=== PATIENT | male | born 1975 | race Caucasian/White ===

== ENCOUNTER 2019-02-24 10:23 | Emergency (ER) | payer BC ==
[~2019-02-24] VITALS: Ht 170.2 cm; Wt 117.9 kg
--- NOTE | 2019-02-24 10:50 | NUR ---
XRAY AT BEDSIDE.
[2019-02-24 11:04] LABS: BASOPHILS # (AUTO) 0.1 (0.0-0.1); BASOPHILS % 0.7 % (0.0-1.0); EOSINOPHILS # (AUTO) 0.2 (0.0-0.4); HEMATOCRIT 49.2 % (38.2-49.6); HEMOGLOBIN 17.3 g/dL (14.0-18.0); LYMPHOCYTES # (AUTO) 2.9 (1.0-3.2); LYMPHOCYTES % 29.8 % (18.0-39.1); MEAN CORPUSCULAR HEMOGLOBIN 32.6 pg (28-32); MEAN CORPUSCULAR HGB CONC 35.2 g/dL (31-35); MEAN CORPUSCULAR VOLUME 92.8 fL (81-99); MONOCYTES # (AUTO) 1.2 (0.2-0.8); MONOCYTES % 12.3 % (4.4-11.3); NEUTROPHILS # (AUTO) 5.3 (2.1-6.9); NEUTROPHILS % 54.8 % (38.7-80.0); PLATELET COUNT 236 x10e3/uL (140-360); RED CELL DISTRIBUTION WIDTH 13.1 % (11.7-14.4)
[2019-02-24 11:16] LABS: INR 0.94; PROTHROMBIN TIME 13.1 seconds (11.9-14.5)
[2019-02-24 11:17] LABS: PARTIAL THROMBOPLASTIN TIME 32.6 seconds (23.8-35.5)
[2019-02-24 11:26] LABS: ALANINE AMINOTRANSFERASE 38 IU/L (0-55); ALBUMIN 4.4 g/dL (3.5-5.0); ALBUMIN/GLOBULIN RATIO 1.6 (0.8-2.0); ALKALINE PHOSPHATASE 92 IU/L (40-150); ANION GAP 14.1 mmol/L (8-16); BLOOD UREA NITROGEN 15 mg/dL (7-26); BUN/CREATININE RATIO 13 (6-25); CALCIUM 10.4 mg/dL (8.4-10.2); CARBON DIOXIDE 24 mmol/L (22-29); CHLORIDE 105 mmol/L (98-107); CREATINE KINASE 92 IU/L (30-200); CREATININE, SERUM 1.18 mg/dL (0.72-1.25); EST GLOMERULAR FILTRATION RATE > 60 ML/MIN (60-); GLUCOSE 94 mg/dL (74-118); MAGNESIUM 2.4 MG/DL (1.3-2.1); POTASSIUM 4.1 mmol/L (3.5-5.1); SODIUM 139 mmol/L (136-145)
--- NOTE | 2019-02-24 11:31 | Diagnostic Imaging Report ---
EXAMINATION: CHEST SINGLE (PORTABLE) INDICATION: Hypotension, bilateral hand numbness. COMPARISON: None FINDINGS: TUBES and LINES: None. LUNGS: Lungs are well inflated. There is no evidence of pneumonia or pulmonary edema. PLEURA: No pleural effusion or pneumothorax. HEART AND MEDIASTINUM: The cardiomediastinal silhouette is unremarkable. BONES AND SOFT TISSUES: No acute osseous abnormality. UPPER ABDOMEN: No free air under the diaphragm. IMPRESSION: No acute radiographic abnormality. Signed by: Dr. Charley Howe MD on 02/24/2019 11:28 AM
[2019-02-24 12:11] VITALS: BP 108/69
== END 2019-02-24 12:23 | disposition home or self-care (01) ==
LOC: ER 10:23
DX: R06.09 Other forms of dyspnea (principal); R05 Cough; J20.9 Acute bronchitis, unspecified; J01.10 Acute frontal sinusitis, unspecified; I10 Essential (primary) hypertension; E11.9 Type 2 diabetes mellitus without complications
CPT/HCPCS: 36415; 71045; 80053; 82550; 82553; 83735; 83880; 84484; 85025; 85610; 85730; 93005; 99284

== ENCOUNTER 2019-04-02 13:57 | Inpatient (IN) | payer BC ==
[2019-04-02] VITALS (8 sets, daily range): BP systolic 109–133; BP diastolic 68–91
[~2019-04-02] VITALS: Ht 170.2 cm; Wt 121.3 kg
--- OUTSIDE RECORDS SUMMARY | 2019-04-02 14:01 | XMS REPORT ---
Author Author [facility] Address Unknown Phone Unavailable Care Team Providers Care Glass Glazier Name Role Phone Kayla MURGUIA Unavailable Unavailable Problems This patient has no known problems. Allergies, Adverse Reactions, Alerts This patient has no known allergies or adverse reactions. Medications This patient has no known medications. 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 COMPARISON: None FINDINGS: TUBES and LINES: None. LUNGS: Lungs are well inflated. There is no evidence of pneumonia or pulmonary edema. PLEURA: No pleural effusion or pneumothorax. HEART AND MEDIASTINUM: The cardiomediastinal silhouette is unremarkable. BONES AND SOFT TISSUES: No acute osseous abnormality. UPPER ABDOMEN: No free air under the diaphragm. IMPRESSION: No acute radiographic abnormality. Signed by: Dr. Brant Kenny MD on 02/24/2019 11:28 AM Dictated By: BRANT KENNY MD 1128 Transcribed By: FEDE on 02/24/19 1128 COPY TO: KARIN MOELLER NP
[2019-04-02] MEDS ORDERED: ASPIRIN 81 MG CHEW TAB PO ONE ×2 (14:15→15:30)
[2019-04-02] MEDS ORDERED: MORPHINE SULFATE 5 MG/ML VIAL IV ONE (14:30)
[2019-04-02 14:36] LABS: BASOPHILS # (AUTO) 0.1 (0.0-0.1); BASOPHILS % 0.5 % (0.0-1.0); EOSINOPHILS # (AUTO) 0.2 (0.0-0.4); HEMATOCRIT 48.2 % (38.2-49.6); HEMOGLOBIN 16.9 g/dL (14.0-18.0); LYMPHOCYTES # (AUTO) 2.7 (1.0-3.2); LYMPHOCYTES % 29.9 % (18.0-39.1); MEAN CORPUSCULAR HEMOGLOBIN 32.6 pg (28-32); MEAN CORPUSCULAR HGB CONC 35.1 g/dL (31-35); MEAN CORPUSCULAR VOLUME 93.1 fL (81-99); MONOCYTES % 11.2 % (4.4-11.3); NEUTROPHILS # (AUTO) 5.1 (2.1-6.9); NEUTROPHILS % 56.1 % (38.7-80.0); PLATELET COUNT 234 x10e3/uL (140-360); RED BLOOD COUNT 5.18 x10e6/uL (4.3-5.7); RED CELL DISTRIBUTION WIDTH 12.8 % (11.7-14.4)
[2019-04-02 14:44] LABS: INR 0.98; PROTHROMBIN TIME 13.5 seconds (11.9-14.5)
[2019-04-02 14:45] LABS: PARTIAL THROMBOPLASTIN TIME 34.6 seconds (23.8-35.5)
[2019-04-02 14:56] LABS: ALANINE AMINOTRANSFERASE 37 IU/L (0-55); ALBUMIN 4.2 g/dL (3.5-5.0); ALBUMIN/GLOBULIN RATIO 1.4 (0.8-2.0); ALKALINE PHOSPHATASE 95 IU/L (40-150); ANION GAP 13.9 mmol/L (8-16); BLOOD UREA NITROGEN 16 mg/dL (7-26); BUN/CREATININE RATIO 13 (6-25); CARBON DIOXIDE 24 mmol/L (22-29); CHLORIDE 105 mmol/L (98-107); CREATINE KINASE 127 IU/L (30-200); CREATININE, SERUM 1.26 mg/dL (0.72-1.25); EST GLOMERULAR FILTRATION RATE > 60 ML/MIN (60-); GLUCOSE 112 mg/dL (74-118); POTASSIUM 3.9 mmol/L (3.5-5.1); SODIUM 139 mmol/L (136-145)
[2019-04-02 15:09] LABS: BILIRUBIN,URINE NEGATIVE (NEGATIVE); CLARITY,URINE SL CLOUDY (CLEAR); COLOR,URINE YELLOW (YELLOW); KETONES,URINE NEGATIVE (NEGATIVE); LEUKOCYTE ESTERASE ,URINE NEGATIVE (NEGATIVE); NITRITE,URINE NEGATIVE (NEGATIVE); PROTEIN,URINE DIPSTICK NEGATIVE (NEGATIVE); URINE UROBILINOGEN 0.2 mg/dL (0.2 - 1)
[2019-04-02] MEDS ORDERED: NITROGLYCERIN 0.4 MG SUBL ONE (15:13)
[2019-04-02] MEDS ORDERED: SODIUM CHLORIDE 0.9% 1000ML 1,000 ML ONE (15:13)
--- NOTE | 2019-04-02 15:15 | NUR ---
Pt reports severe chest pain states pain now radiating to his Left arm. Describes pain as a sharp pain. Rates pain 10/10. EKG repeated. CAMILLE Sotelo and Dr. Hayes notified. Verbal order with read back for Nitro 0.4mg SL.
--- NOTE | 2019-04-02 15:17 | Diagnostic Imaging Report ---
EXAMINATION: CHEST SINGLE (PORTABLE) INDICATION: Chest pain COMPARISON: Chest radiograph of 02/24/2019 FINDINGS: TUBES and LINES: EKG leads overlie the chest. LUNGS: The lung volumes are normal. No focal consolidation or pulmonary edema. PLEURA: No pleural effusion or pneumothorax. HEART AND MEDIASTINUM: The cardiomediastinal silhouette is normal in size and contour. BONES AND SOFT TISSUES: No acute fracture or dislocation. UPPER ABDOMEN: No free air under the diaphragm. IMPRESSION: No focal pneumonia or pulmonary edema Signed by: Jesu Singletary MD on 04/02/2019 3:14 PM
[2019-04-02] MEDS: NITROGLYCERIN 0.4 MG SUBL SL PRN ×2 (15:18→15:25)
[2019-04-02] MEDS ORDERED: NITROGLYCERIN/D5W 200 MCG/ML 250 ML IV PRN (15:30)
[2019-04-02] MEDS ORDERED: DEXTROSE 50% SYRINGE 50 ML IV PRN (15:30)
[2019-04-02] MEDS ORDERED: NITROGLYCERIN 0.4 MG SUBL SL PRN (15:30)
--- NOTE | 2019-04-02 15:34 | NUR ---
Pt currently rates pain 4/10. States pain has improved with Nitro 0.4mg SL x2.
[2019-04-02] MEDS ORDERED: CLOPIDOGREL BISULFATE 75 MG TAB PO ONE (15:45)
[2019-04-02] MEDS ORDERED: HEPARIN SOD (PORCINE) 5,000 UNIT/ML VIAL IV ONE (15:45)
[2019-04-02] MEDS ORDERED: ACETAMINOPHEN 325 MG TAB PO ONE (15:45)
[2019-04-02] MEDS ORDERED: HEPARIN 25,000 UNIT 1,000 UNIT in DEXTROSE 5% 250ML 250 ML IV SCH (15:45)
[2019-04-02 15:52] LABS: AMORPHOUS SEDIMENT,URINE MODERATE (FEW); BACTERIA,URINE FEW /HPF; CALCIUM OXALATE CRYSTALS,UR FEW (FEW); EPITHELIAL CELLS,URINE FEW /LPF; MUCUS,URINE MODERATE (RARE)
[2019-04-02] MEDS ORDERED: METFORMIN HCL500 MG PO (16:28)
[2019-04-02] MEDS ORDERED: METOPROLOL SUCC25 MG PO (16:28)
[2019-04-02] MEDS: INSULIN REGULAR, HUMAN 100 UNIT/1 ML 3ML VIAL SQ SCH ×2 (16:30→21:00)
[2019-04-02] MEDS: SODIUM CHLORIDE 0.9% 1000ML 1,000 ML IV SCH (19:20)
--- NOTE | 2019-04-02 20:00 | NUR ---
Pt with c/o not being able to tolerate the nitroglycerin. Had reported chest discomfort/tightness of "6" up from a "2". Qxygen at 2L per NC applied. The nitroglycerin increased to 25mcg/min. Pt stating he has intolerable headache of "4", but the chest tightness is back down to tolerable of "3". Denies chest pain. States pain comes with tightness of "8" or worse. Have paged and spoken with Dr Craven to report the above complaints. New orders received.
[2019-04-02] MEDS ORDERED: ONDANSETRON HCL 4 MG ORAL DISINTEGRATING TAB PO PRN (20:15)
[2019-04-02] MEDS: ACETAMINOPHEN 325 MG TAB PO PRN (20:23)
[2019-04-02 21:37] LABS: CREATINE KINASE MB 9.4 ng/mL (0-5.0)
[2019-04-03] VITALS (29 sets, daily range): BP systolic 105–144; BP diastolic 60–93
--- NOTE | 2019-04-03 00:47 | History and Physical ---
REASON FOR ADMISSION: Non-ST elevation myocardial infarction. HISTORY OF PRESENT ILLNESS: This is a 43-year-old male with history of diabetes mellitus, hypertension, and hyperlipidemia, who presents with complaints of chest pain. The patient was recently seen by Dr. Zheng in the office and was scheduled for an outpatient nuclear stress test, however, the patient reports he developed worsening chest pain today. He describes it as pressure, 10/10 in severity in the center of his chest with radiation to the left arm, lasting approximately 15 to 20 minutes. He denies any shortness of breath, nausea, or diaphoresis. Denies any edema, orthopnea, or PND. Chest pain is better, but persists at this time. He presented to the ER for further evaluation where he was found to have a troponin of 0.324. He was subsequently admitted for further management. REVIEW OF SYSTEMS: Negative except as per HPI. PAST MEDICAL HISTORY: 1. Hypertension. 2. Hyperlipidemia. 3. Diabetes mellitus. PAST SURGICAL HISTORY: 1. Hand surgery. 2. Appendectomy. ALLERGIES: MORPHINE. MEDICATIONS: Please see medication list. SOCIAL HISTORY: He smokes a pack a day for 20 years. Occasional alcohol. No illicit drugs. FAMILY HISTORY: Unknown as the patient is adopted. PHYSICAL EXAMINATION: VITAL SIGNS: Temperature 98 degrees, pulse 73, respiratory rate 22, blood pressure 129/87, oxygen saturation 98%. GENERAL: A well-developed, well-nourished man, in no acute distress. HEENT: Normocephalic, atraumatic. Pupils equal. No scleral icterus. NECK: Supple. No thyromegaly or cervical lymphadenopathy. No carotid bruits. LUNGS: Clear to auscultation bilaterally. No wheezes or crackles. CARDIOVASCULAR: Normal rate, regular rhythm. No murmur. Normal S1, S2. ABDOMEN: Soft, nontender. EXTREMITIES: No edema. NEUROLOGIC: Nonfocal exam. LABORATORY DATA: WBC 9.12, hemoglobin 16.9, hematocrit 48.2, platelets 234. Sodium 139, potassium 3.9, chloride 105, CO2 of 24. BUN 16 and creatinine 1.26. INR 0.98. Chest x-ray, no focal pneumonia or pulmonary edema. EKG, normal sinus rhythm, normal ECG. IMPRESSION: 1. Spo-UU-lwbiqkfvz myocardial infarction. 2. Hypertension. 3. Diabetes mellitus. 4. Hyperlipidemia. 5. Acute kidney injury. The patient has been placed on heparin drip and nitroglycerin drip, titrate for until the patient is chest pain-free. IV fluids in preparation for cardiac catheterization tomorrow. N.p.o. after midnight. Aspirin has been given, we will continue. Start the patient on metoprolol, trend cardiac enzymes. Fiordaliza Craven MD ABS/MODL /[id number] MTDD
[2019-04-03] MEDS: ACETAMINOPHEN 325 MG TAB PO PRN ×2 (02:20→08:32)
[2019-04-03] MEDS: SODIUM CHLORIDE 0.9% 1000ML 1,000 ML IV SCH (04:05)
[2019-04-03 05:42] LABS: CREATINE KINASE MB 19.5 ng/mL (0-5.0)
[2019-04-03 06:19] LABS: CHOL/HDL RATIO 5.3 (3.9-4.7)
[2019-04-03] MEDS: INSULIN REGULAR, HUMAN 100 UNIT/1 ML 3ML VIAL SQ SCH ×4 (07:30→21:00)
[2019-04-03] MEDS: ASPIRIN 81 MG ENTERIC COATED PO SCH (08:31)
[2019-04-03] MEDS: METOPROLOL TARTRATE 25 MG TAB PO SCH ×2 (08:31→16:45)
[2019-04-03 11:09] LABS: CREATINE KINASE MB 24.4 ng/mL (0-5.0)
[2019-04-03 12:28] LABS: ANION GAP 14.3 mmol/L (8-16); BLOOD UREA NITROGEN 12 mg/dL (7-26); BUN/CREATININE RATIO 12 (6-25); CALCIUM 9.1 mg/dL (8.4-10.2); CARBON DIOXIDE 20 mmol/L (22-29); CHLORIDE 108 mmol/L (98-107); CREATININE, SERUM 1.01 mg/dL (0.72-1.25); EST GLOMERULAR FILTRATION RATE > 60 ML/MIN (60-); GLUCOSE 132 mg/dL (74-118); POTASSIUM 4.3 mmol/L (3.5-5.1); SODIUM 138 mmol/L (136-145)
--- NOTE | 2019-04-03 13:26 | Progress Note ---
DATE: 04/03/2019 Cardiology Progress Note SUBJECTIVE: The patient denies chest pain or shortness of breath. He remains on nitroglycerin drip and heparin drip. OBJECTIVE: VITAL SIGNS: Temperature 98 degrees, pulse 88, respiratory rate 17, blood pressure 119/84, oxygen saturation 100% on room air. GENERAL: Awake, alert, in no acute distress. LUNGS: Clear to auscultation bilaterally. No wheezes or crackles. CARDIOVASCULAR: Normal rate, regular rhythm. No murmur. Normal S1, S2. ABDOMEN: Soft, nontender. EXTREMITIES: No edema. CARDIAC MEDICATIONS: Aspirin 81 mg p.o. daily, metoprolol tartrate 12.5 mg p.o. b.i.d., heparin drip, nitroglycerin drip. LABORATORY DATA: Troponin 1.258, CK-MB 24.4, triglycerides 184, cholesterol 176, LDL 106, HDL 33. TELEMETRY: Normal sinus rhythm. IMPRESSION: 1. Vpy-RK-sffwvokuo myocardial infarction. 2. Hypertension. 3. Diabetes mellitus. 4. Hyperlipidemia. 5. Acute kidney injury. RECOMMENDATIONS: The patient is n.p.o. for cardiac catheterization today. Maintain on heparin drip and nitroglycerin drip. He is currently chest pain free. Continue IV fluids. Repeat basic metabolic panel. Start patient on atorvastatin given elevated LDL and sek-CL-nuditnybv myocardial infarction. Continue aspirin as well as metoprolol. Trend cardiac enzymes until downtrending. The patient was loaded with Plavix yesterday afternoon. Hold further Plavix until completion of cardiac cath. Fiordaliza Craven MD ABS/MODL /[id number]
[2019-04-03] MEDS ORDERED: VERAPAMIL HCL 2.5 MG/ML 2 ML VIAL ONE (13:34)
[2019-04-03] MEDS ORDERED: MIDAZOLAM HCL 2 MG/2 ML VIAL ONE ×2 (13:34→14:56)
[2019-04-03] MEDS ORDERED: FENTANYL CITRATE/PF 100MCG/2 ML INJ ONE (13:34)
[2019-04-03] MEDS ORDERED: IOPAMIDOL 370 MG/ML 200 ML INFUS..BTL INJ ONE ×3 (13:35→14:52)
[2019-04-03] MEDS ORDERED: LIDOCAINE HCL 2% LOCAL 20 ML VIAL ONE (13:35)
[2019-04-03] MEDS ORDERED: HEPARIN SOD/SOD CHLORIDE 2,000 ML ONE (13:35)
[2019-04-03] MEDS ORDERED: SODIUM CHLORIDE 0.9% 1000ML 1,000 ML ONE (13:35)
--- NOTE | 2019-04-03 13:45 | NUR ---
Patient to energy systems laboratory director via bed. Report to MITCH Sandoval.
[2019-04-03] MEDS ORDERED: ONDANSETRON HCL INJ 2MG/ML 2ML 2 MG/ML VIAL ONE (14:23)
[2019-04-03] MEDS ORDERED: PROMETHAZINE HCL (IM) 25 MG/ML VIAL ONE (14:57)
[2019-04-03] MEDS ORDERED: ATROPINE SULFATE 0.1 MG/ML 10ML SYR ONE (14:58)
[2019-04-03] MEDS ORDERED: TICAGRELOR 90 MG TABLET ONE (15:08)
--- NOTE | 2019-04-03 15:20 | NUR ---
Report provided to Deena MEYER, review of procedural findings and medications given. Patient drowsy, easily aroused. maintains airway and room air saturations of 96-98%. No gross issues of pressure, pain, pallor or dysrhythmia. IV site patent with NS 0.9% at KVO by gravity. Nitro gtt stopped. patient hemodynamically stable with hemostasis right radial TR band dressing CDI w/o s/s of bleeding. Denies need to urinate after producing 200ml clear urine or c/o nausea. [facility]. transported to ICU 194 by CCL staff on monitor - cgf procedure: DX LHC w/ PCI to Diagonal Sheath puller: Don PEDIATRIC OCCUPATIONAL THERAPIST LTR band 12ml Meds Given Intra-Procedure Sedatives Versed - 3 mg Fentanyl - 100 mcg Anticoagulants Heparin - 9000 Units Radial Cocktail Heparin - 3000 units Nitro - 200mcg Verapamil - 2.5mg Fluids Input -400ml Output - 200ml Contrast Isovue 370 - 220ml Other Meds Brilinta 180mg Zofran IV 4mg Phenergan 12.5mg IV
--- NOTE | 2019-04-03 15:34 | NUR ---
Paged Dr Devorah Zheng to request post cath orders.
--- NOTE | 2019-04-03 15:47 | NUR ---
Left message on VM of Dr Devorah Zheng.
--- NOTE | 2019-04-03 20:48 | Operative Report ---
DATE OF PROCEDURE: SURGEON: Earl Zheng DO PROCEDURES PERFORMED: 1. Selective coronary angiography x2. 2. Left heart catheterization. 3. Percutaneous transluminal coronary angioplasty and drug-eluting stent placement to the right posterolateral coronary artery. 4. Conscious sedation, 45 minutes. PREPROCEDURE DIAGNOSIS: Non-ST elevation myocardial infarction. POSTPROCEDURE DIAGNOSIS: Non-ST elevation myocardial infarction. ESTIMATED BLOOD LOSS: Less than 20 mL. SPECIMENS REMOVED: None. PROCEDURE IN DETAIL: After informed consent was obtained, the patient was brought to the cardiac catheterization laboratory in a fasting and nonsedated state. Bilateral groins and right wrist were prepped and draped in the usual sterile fashion. A 2% lidocaine was infiltrated over the right wrist for local anesthesia. Using micropuncture needle, the right radial artery was accessed via modified Seldinger technique and a 5-Portuguese Glidesheath was placed. Next, selective coronary angiography was performed using a TIG and AR mod catheters. This revealed a significant occlusion of the right posterolateral branch and decision was made to perform percutaneous coronary intervention. The patient received systemic heparin for therapeutic anticoagulation. The right coronary artery was cannulated with an AR mod guide catheter with backup support of a GuideLiner. The lesion was crossed with a Whisper wire and pre-dilated with a 2 balloon. Next, the lesion was stented with a 2 x 22 Resolute ben stent with excellent angioplasty results. The patient tolerated the procedure well with no immediate complications and transported back to his room in stable condition. PROCEDURAL FINDINGS: 1. Left main coronary artery is patent without significant disease. 2. The left anterior descending coronary artery is patent throughout its course with mild luminal irregularities. The diagonal branch is small in caliber with an ostial 50% stenosis. 3. The ramus intermedius coronary artery is small with mild diffuse disease. 4. The left circumflex coronary provides flow into one bifurcating obtuse marginal vessel. 5. The right coronary artery is a dominant vessel that provides the posterior descending coronary artery. The RCA itself has no significant disease. The posterolateral branch is 100% occluded. INTERVENTIONAL RESULTS: Successful percutaneous coronary intervention of the right posterolateral branch. Pre-PCI ALEXIS flow was 0. Post-PCI ALEXIS flow was 3. Postprocedure stenosis less than 10%. IMPRESSION: Coronary artery disease with a non-ST elevation myocardial infarction. RECOMMENDATIONS: Continue dual antiplatelet therapy and receive guideline directed medical therapy for his myocardial infarction. DO VIC Ortiz /[id number]
[2019-04-03] MEDS ORDERED: ATORVASTATIN 40 MG TAB PO SCH (21:00)
[2019-04-03] MEDS ORDERED: ATORVASTATIN 20 MG TAB PO SCH (21:00)
--- NOTE | 2019-04-03 21:00 | NUR ---
Right radial TR band removed per protocol. 2x2 gauze and transparent dressing applied. Mild pressure with foam tape also applied. Pt is without complaint. Bruising is noted, but not more than at shift change. No bleeding or hematoma noted. Pt educated not to use the arm tonight, put pressure, or lift with the right arm. Also, discussed continued restrictions (ie: 10lb weight limit) until cleared by cardiology. Pt voiced understanding. Will monitor.
[2019-04-04] VITALS (10 sets, daily range): BP systolic 104–137; BP diastolic 71–90
[2019-04-04] MEDS: INSULIN REGULAR, HUMAN 100 UNIT/1 ML 3ML VIAL SQ SCH ×2 (07:30→11:30)
[2019-04-04] MEDS: ASPIRIN 81 MG ENTERIC COATED PO SCH (08:10)
[2019-04-04] MEDS: METOPROLOL TARTRATE 25 MG TAB PO SCH (08:15)
--- NOTE | 2019-04-04 08:25 | NUR ---
patient ambulating in room to toilet and chair on continuous ekg monitoring. no signs of any sob and patient denies chest pain. vital signs remain stable.
[2019-04-04] MEDS ORDERED: TICAGRELOR 90 MG TABLET PO SCH (11:00)
[2019-04-04] MEDS ORDERED: BRILINTA90 MG PO (11:06)
[2019-04-04] MEDS ORDERED: ASPIRIN81 MG PO (11:18)
--- NOTE | 2019-04-04 11:27 | NUR ---
discontinued piv x 2. catheters intact. held pressure and applied pressure bandage.
--- NOTE | 2019-04-04 11:37 | NUR ---
patient given coupon for new prescription. patient to let provider know if he has any issues with getting medication
--- NOTE | 2019-04-05 03:36 | Discharge Summary ---
ADMISSION DIAGNOSIS: Rqp-PR-vwfavjknh myocardial infarction. DISCHARGE DIAGNOSIS: Cij-KK-alwyjjtwb myocardial infarction. COMORBID CONDITIONS: Hypertension, hyperlipidemia, and diabetes mellitus. PROCEDURE: 1. Selective coronary angiography. 2. Left heart catheterization. 3. Percutaneous transluminal coronary angioplasty and drug-eluting stent placement to the right posterolateral coronary artery. HISTORY OF PRESENT ILLNESS AND HOSPITAL COURSE: A 43-year-old man with history as above, who presented to the [facility] with complaints of chest pain. He was found to have hho-YE-ahdbgilth myocardial infarction, taken to the cardiac catheterization laboratory as above. He had percutaneous coronary intervention of the right posterolateral artery and was observed in the hospital overnight. The patient tolerated the procedure well and was discharged home the following day in stable condition. MEDICATIONS: Please see discharge medication reconciliation. FOLLOWUP: Follow up with Dr. Earl Zheng in two weeks. PHYSICAL EXAMINATION: VITAL SIGNS: Temperature 97 degrees, pulse 68, respiratory rate 18, blood pressure 119/86, and oxygen saturation 98% on room air. GENERAL: A well-developed, well-nourished man, in no acute distress. Awake and alert. LUNGS: Clear to auscultation bilaterally. No wheeze or crackles. CARDIOVASCULAR: Normal rate. Regular rhythm. No murmur. Normal S1, S2. ABDOMEN: Soft and nontender. EXTREMITIES: No edema. Right wrist with palpable radial pulse. Telemetry is normal sinus rhythm. Fiordaliza Craven MD ABS/MODL /[id number]
== END 2019-04-04 12:04 | disposition home or self-care (01) | DRG 247 ==
LOC: ER 13:57 → ERHOLD 15:30 → ICU 17:08
PROVIDERS: ADMIT Internal Medicine Cardiovascular Disease; ATTEND Internal Medicine Cardiovascular Disease
PROC: B2151ZZ Fluoroscopy of Left Heart using Low Osmolar Contrast (ICD-10-PCS; principal; 2019-04-03)
PROC: 027034Z Dilation of Coronary Artery, One Artery with Drug-eluting Intraluminal Device, Percutaneous Approach (ICD-10-PCS; 2019-04-03)
PROC: B2111ZZ Fluoroscopy of Multiple Coronary Arteries using Low Osmolar Contrast (ICD-10-PCS; 2019-04-03)
PROC: 4A023N7 Measurement of Cardiac Sampling and Pressure, Left Heart, Percutaneous Approach (ICD-10-PCS; 2019-04-03)
DX: I21.4 Non-ST elevation (NSTEMI) myocardial infarction (principal); N17.9 Acute kidney failure, unspecified; Z68.41 Body mass index [BMI] 40.0-44.9, adult; I10 Essential (primary) hypertension; E11.9 Type 2 diabetes mellitus without complications; E78.5 Hyperlipidemia, unspecified; E66.9 Obesity, unspecified; Z82.49 Family history of ischemic heart disease and other diseases of the circulatory system; Z88.5 Allergy status to narcotic agent; Z72.89 Other problems related to lifestyle; F17.210 Nicotine dependence, cigarettes, uncomplicated; I25.110 Atherosclerotic heart disease of native coronary artery with unstable angina pectoris; Z79.84 Long term (current) use of oral hypoglycemic drugs
CPT/HCPCS: 36415; 71045; 80048; 80053; 80061; 81001; 82550; 82553; 82948; 83880; 84484; 85025; 85610; 85730; 92928; 93005; 93458; 99284; C1725; C1769; C1874; C1887; J1644; J2001; J2250; J2405; J2550; J3010; J7030; Q0162; Q9967

== ENCOUNTER 2021-07-31 22:07 | Emergency (ER) | payer BC, OTHER ==
[~2021-07-31] VITALS: Ht 170.2 cm; Wt 102.1 kg
[~2021-07-31 22:07] MED LIST: ASPIRIN81 MG PO; BRILINTA90 MG PO; METFORMIN HCL500 MG PO; METOPROLOL SUCC25 MG PO
[2021-07-31] MEDS ORDERED: METHYLPREDNISOLONE SOD SUCC 125 MG/2ML VIAL IV ONE (22:15)
[2021-07-31] MEDS ORDERED: ALBUTEROL SULF 0.083% NEB SOLN 3 ML NEB NEB STA (22:23)
[2021-07-31 22:45] LABS: BASOPHILS # (AUTO) 0.1 (0.0-0.1); BASOPHILS % 0.6 % (0.0-1.0); EOSINOPHILS # (AUTO) 0.3 (0.0-0.4); EOSINOPHILS % 2.5 % (0.0-6.0); HEMATOCRIT 49.2 % (38.2-49.6); HEMOGLOBIN 16.8 g/dL (14.0-18.0); LYMPHOCYTES # (AUTO) 3.8 (1.0-3.2); LYMPHOCYTES % 29.1 % (18.0-39.1); MEAN CORPUSCULAR HEMOGLOBIN 32.7 pg (28-32); MEAN CORPUSCULAR HGB CONC 34.1 g/dL (31-35); MEAN CORPUSCULAR VOLUME 95.7 fL (81-99); MONOCYTES # (AUTO) 1.9 (0.2-0.8); MONOCYTES % 14.6 % (4.4-11.3); NEUTROPHILS # (AUTO) 6.9 (2.1-6.9); NEUTROPHILS % 52.7 % (38.7-80.0); PLATELET COUNT 217 x10e3/uL (140-360); RED BLOOD COUNT 5.14 x10e6/uL (4.3-5.7); RED CELL DISTRIBUTION WIDTH 12.9 % (11.7-14.4)
[2021-07-31 23:03] LABS: ALBUMIN 4.1 g/dL (3.5-5.0); ALBUMIN/GLOBULIN RATIO 1.3 (0.8-2.0); ANION GAP 19.7 mmol/L (8-16); CALCIUM 9.3 mg/dL (8.4-10.2); CREATININE, SERUM 1.1 mg/dL (0.72-1.25); POTASSIUM 3.7 mmol/L (3.5-5.1)
[2021-07-31 23:09] LABS: CREATINE KINASE MB 1.8 ng/mL (0-5.0)
[2021-07-31] MEDS ORDERED: VENTOLIN HFA18 GM INH (23:24)
[2021-07-31] MEDS ORDERED: PREDNISONE20 MG PO (23:24)
[2021-07-31] MEDS ORDERED: AZITHROMYCIN250 MG PO (23:24)
== END 2021-07-31 23:34 | disposition home or self-care (01) ==
LOC: ER 22:12
DX: J68.0 Bronchitis and pneumonitis due to chemicals, gases, fumes and vapors (principal); R06.02 Shortness of breath; I10 Essential (primary) hypertension; E11.9 Type 2 diabetes mellitus without complications; E78.5 Hyperlipidemia, unspecified
CPT/HCPCS: 36415; 71046; 80053; 82550; 82553; 83880; 84484; 85025; 99284; J2930

== ENCOUNTER → 2024-07-02 | Outpatient (REF) | payer OTHER ==
[~2024-07-02] MED LIST changes: +AZITHROMYCIN250 MG PO; +PREDNISONE20 MG PO; +VENTOLIN HFA18 GM INH
== END ==
LOC: CT 09:55
PROVIDERS: ATTEND Family Medicine
DX: R91.1 Solitary pulmonary nodule (principal)
CPT/HCPCS: 71250